=== PATIENT | male | born 1955 | race Hispanic/Latino ===

== ENCOUNTER 2018-06-14 09:16 | Inpatient (IN) | payer MEDICARE ==
[2018-06-14 09:54] LABS: BASO # 0.03 {null, K/mm3} (0.0-2.0); BASO % 0.3 % (0.0-3.0); EOS # 0.3 (0.0-0.7); EOS % 3.5 % (1.5-5.0); HEMOGLOBIN 14.7 g/dL (14.0-18.0); LYMPH # 1.6 (1.2-3.4); LYMPH % 18.5 % (22.0-35.0); MEAN CELL VOLUME 86.1 fl (80.0-105.0); MEAN CORPUSCULAR HEMOGLOBIN 29.7 pg (25.0-35.0); MEAN CORPUSCULAR HGB CONC 34.5 g/dl (31.0-37.0); MEAN PLATELET VOLUME 10.2 fl (7.0-11.0); MONO # 0.8 (0.1-0.6); MONO % 8.7 % (1.0-6.0); RBC 4.95 {null, 10^6/uL} (3.5-6.1); RED CELL DISTRIBUTION WIDTH 12.6 % (11.5-14.5); WHITE BLOOD COUNT 8.8 {null, 10^3/uL} (4.5-11.0)
--- NOTE | 2018-06-14 09:55 | ED PDOC ---
Arrival/HPI - General Chief Complaint: Weakness/Neurological Deficit Time Seen by Provider: 06/14/18 09:26 Historian: Patient - History of Present Illness Narrative History of Present Illness (Text): 06/14/18 09:50 A 62 year old male, whose past medical history includes diabetes type 2, UT, pacemaker, and hypertension, presents to the emergency department complaining of left upper/lower extremity weakness starting yesterday. Patient reports yesterday he was watching TV and upon getting up from his chair, he felt sudden weakness to his left lower extremity and fell to the floor. Patient assumed it was due to low blood sugar, so he checked it and it measured to 260. Patient remained unconcerned at the time regarding his weakness. Today, patient continues to experience in the lower left extremity, as well as the left upper extremity. Patient was unable to ambulate and decided to come to the ER to be evaluated for symptoms. Patient denies any head trauma, LOC, or any other complaints at this time. Denies any history of alcohol consumption, and is no longer a smoker. Associated Symptoms (Text): 06/14/18 10:20 Patient reports that he was sitting in a chair yesterday morning. He went to get out of the chair at 12 noon and noticed left lower extremity weakness causing him to fall on the ground. He thought it was related to his blood sugar which was high. He continued to have the left lower extremity weakness all day yesterday and continued with it today. He also had some difficulty walking and some left upper extremity weakness and came to the emergency department this morning for evaluation. The symptoms were first noticed approximately 22 hours prior to arrival. It is unclear when the patient was last seen normal prior to the symptoms beginning 22 hours ago. Patient is not a TPA candidate as his symptoms began 22 hours ago. Past Medical History - Provider Review Nursing Documentation Reviewed: Yes - Tetanus Immunization Tetanus Immunization: Unknown - Cardiac Hx Cardiac Arrhythmia: Yes Hx Congestive Heart Failure: Yes Hx UT: Yes Hx Hypertension: Yes Hx Internal Defibrillator: Yes Hx Pacemaker: Yes - Endocrine/Metabolic Hx Diabetes Mellitus Type 2: Yes - Psychiatric Hx Depression: No Hx Emotional Abuse: No Hx Physical Abuse: No Hx Substance Use: No - Suicidal Assessment Feels Threatened In Home Enviroment: No Family/Social History - Physician Review Nursing Documentation Reviewed: Yes Family/Social History: Unknown Family HX Smoking Status: Former Smoker Hx Alcohol Use: No Hx Substance Use: No Hx Substance Use Treatment: No Allergies/Home Meds Allergies/Adverse Reactions: Allergies No Known Allergies Allergy (Verified 06/14/18 09:19) Home Medications: Home Meds Medication Instructions Recorded Confirmed Aspirin [Ecotrin] 325 mg PO DAILY 08/27/13 08/27/13 Ca/Folic Acid/Vit B1/Vit B12 [B 1 tab PO DAILY 08/27/13 08/27/13 Complex] Carvedilol 25 mg PO BID 08/27/13 08/27/13 Fish Oil 900 mg PO DAILY 08/27/13 08/27/13 Furosemide [Lasix] 40 mg PO DAILY 08/27/13 08/27/13 Glimepiride 4 mg PO BID 08/27/13 08/27/13 Insulin Detemir [Levemir] 15 units SC HS 08/27/13 08/27/13 Lisinopril 20 mg PO DAILY 08/27/13 08/27/13 Metformin HCl [Metformin] 1,000 mg PO BID 08/27/13 08/27/13 Potassium Chloride [Klor-Con 10] 10 meq PO DAILY 08/27/13 08/27/13 Pravastatin Sodium [Pravastatin] 40 mg PO DAILY 08/27/13 08/27/13 Review of Systems - Physician Review All systems were reviewed & negative as marked: Yes - Review of Systems Constitutional: absent: Fatigue, Other (no injuries) Respiratory: Normal Cardiovascular: Normal Gastrointestinal: Normal Skin: Normal Neurological: Focal Weakness, Gait Changes, Facial Droop, Other (left upper and lower extremity weakness). absent: Headache, Dizziness, Speech Changes, Disequilibrium, Seizure Physical Exam Vital Signs Reviewed: Yes Vital Signs Temp Pulse Resp BP Pulse Ox 06/14/18 09:16 98.1 F 87 18 115/63 98 Temperature: Afebrile Blood Pressure: Normal Pulse: Regular Respiratory Rate: Normal Appearance: Positive for: Well-Appearing, Non-Toxic, Comfortable Pain Distress: None Mental Status: Positive for: Alert and Oriented X 3 Finger Stick Blood Glucose: 315 - Systems Exam Head: Present: Atraumatic, Normocephalic Pupils: Present: PERRL Extroacular Muscles: Present: EOMI Conjunctiva: Present: Normal Ears: Present: NORMAL TM, Normal Canal. No: Erythema, TM Bulging Mouth: Present: Moist Mucous Membranes Pharnyx: No: ERYTHEMA, EXUDATE, TONSILS ENLARGED Neck: Present: Normal Range of Motion Respiratory/Chest: Present: Clear to Auscultation, Good Air Exchange. No: Respiratory Distress, Accessory Muscle Use Cardiovascular: Present: Regular Rate and Rhythm, Normal S1, S2. No: Murmurs Abdomen: No: Tenderness, Distention, Peritoneal Signs Back: Present: Normal Inspection Upper Extremity: Present: Normal Inspection, Other (mild left upper extremity weakness). No: Cyanosis, Edema Lower Extremity: Present: Normal Inspection, Other (moderate left lower extremity weakness). No: Edema Neurological: Present: GCS=15, CN II-XII Intact, Speech Normal, Normal Cerebellar Funct, Other (left-side facial droop). No: Motor Func Grossly Intact, Gait Normal Skin: Present: Warm, Dry, Normal Color. No: Rashes Psychiatric: Present: Alert, Oriented x 3, Normal Insight, Normal Concentration Medical Decision Making ED Course and Treatment: 06/14/18 09:55 Impression: 62 year old male with left upper/lower extremity, and left-side facial droop. Plan: -- EKG -- Head CT -- Chest X-ray -- Labs -- Reassess and disposition Progress Notes: 06/14/2018 10:[address] IMPRESSION: No acute intracranial pathology identified. Please note that MRI with diffusion imaging is more sensitive in the detection of acute ischemic event. Dictator: Mayra Zaldivar MD 06/14/18 10:23 EKG shows normal sinus rhythm rate approximately 90 with a primary AV block and a nonspecific intraventricular conduction delay and Q waves inferiorly with no acute ST or T wave changes. 06/14/18 10:[address] Cage, who accepts to have patient admitted under Dr. Denton's service. - RAD Interpretation Radiology Orders: 06/14/18 09:38 HEAD W/O CONTRAST [CT] Stat 06/14/18 09:39 CHEST PORTABLE [RAD] Stat NIHSS Scale ([place]) Time Performed: 09:40 - How Severe is the Stoke Baseline Level of Consciousness: 0=Alert LOC to Questions: 0=Both comments correct LOC to commands: 0=Obeys both correctly Best Gaze: 0=Normal Visual: 0=No visual loss Facial: 1=Minor asymmetry Motor Arm - Left: 0=No drift Motor Arm - Right: 0=No drift Motor Leg - Left: 3=No effort against gravity (falls immediately) Motor Leg - Right: 0=No drift Limb Ataxia: 0=Absent Sensory: 0=Normal Best Language: 0=No aphasia Dysarthia: 0=Normal articulation Extinction & Inattention (Neglect): 0=Normal, no object Score: 4 Risk Level: Minor Stroke Risk - Scribe Statement The provider has reviewed the documentation as recorded by the Arthur Flores Provider Scribe Attestation: All medical record entries made by the Arthur were at my direction and personally dictated by me. I have reviewed the chart and agree that the record accurately reflects my personal performance of the history, physical exam, medical decision making, and the department course for this patient. I have also personally directed, reviewed, and agree with the discharge instructions and disposition. Disposition/Present on Arrival - Present on Arrival Any Indicators Present on Arrival: No History of DVT/PE: No History of Uncontrolled Diabetes: No Urinary Catheter: No History of Decub. Ulcer: No History Surgical Site Infection Following: None - Disposition Have Diagnosis and Disposition been Completed?: Yes Diagnosis: Cerebrovascular accident, Hyperglycemia due to type 1 diabetes mellitus Disposition: HOSPITALIZED Disposition Time: 10:40 Patient Plan: Admission, Telemetry Patient Problems: Current Active Problems Problem Status Onset Cerebrovascular accident Acute Hyperglycemia due to type 1 diabetes mellitus Acute Condition: FAIR
[2018-06-14 09:59] LABS: INR 1.07; PARTIAL THROMBOPLASTIN TIME 27.2 Seconds (26.9-38.3); PROTHROMBIN TIME 12.1 SECONDS (9.4-12.5)
[2018-06-14 10:12] LABS: TROPONIN I < 0.01 ng/mL
[2018-06-14 10:14] LABS: ALB/GLOB RATIO 1.3 (1.1-1.8); ALBUMIN 4.5 g/dL (3.0-4.8); ALT/SGPT 17 U/L (7-56); AST/SGOT 22 U/L (17-59); BLOOD UREA NITROGEN 19 mg/dL (7-21); CALCIUM 9.7 mg/dL (8.4-10.5); GFR NON-AFRICAN AMERICAN > 60
--- NOTE | 2018-06-14 10:16 | CT ---
Date of service: 06/14/2018 PROCEDURE: CT HEAD WITHOUT CONTRAST. HISTORY: cva COMPARISON: Noncontrast head CT performed 04/02/12 TECHNIQUE: Axial computed tomography images were obtained through the head/brain without intravenous contrast. Radiation dose: Total exam DLP = 899.03 mGy-cm. This CT exam was performed using one or more of the following dose reduction techniques: Automated exposure control, adjustment of the mA and/or kV according to patient size, and/or use of iterative reconstruction technique. FINDINGS: HEMORRHAGE: No intracranial hemorrhage. BRAIN: Diffuse atrophy with prominence of the ventricles and sulci noted. No mass effect or edema. Intracranial atherosclerosis. Giraldo-white matter differentiation appears intact. Please note that MRI with diffusion imaging is more sensitive in the detection of acute ischemic event. VENTRICLES: No hydrocephalus. CALVARIUM: Unremarkable. PARANASAL SINUSES: Unremarkable as visualized. No significant inflammatory changes. MASTOID AIR CELLS: Unremarkable as visualized. No inflammatory changes. OTHER FINDINGS: None. IMPRESSION: No acute intracranial pathology identified. Please note that MRI with diffusion imaging is more sensitive in the detection of acute ischemic event.
[2018-06-14] MEDS ORDERED: Insulin Regular 1 UNITS/0.01 ML ML SC STA ×2 (10:17→11:07)
--- NOTE | 2018-06-14 10:36 | RAD ---
HISTORY: cva COMPARISON: Chest x-rays performed 12/07/14, 06/11/12 TECHNIQUE: Chest, one view. FINDINGS: LUNGS: No focal consolidation. Please note that chest x-ray has limited sensitivity for the detection of pulmonary masses. PLEURA: No significant pleural effusion identified. No definite pneumothorax . CARDIOVASCULAR: Median sternotomy wires with evidence of CABG. Marked cardiomegaly. Single lead left-sided AICD. OSSEOUS STRUCTURES: No acute osseous abnormality identified. VISUALIZED UPPER ABDOMEN: Unremarkable. OTHER FINDINGS: None. IMPRESSION: Marked cardiomegaly. Single lead left-sided AICD. Median sternotomy wires with evidence CABG.
[2018-06-14 11:49] VITALS: BMI 30.1
--- NOTE | 2018-06-14 14:36 | CARD ---
APPROVED REPORT Date of service: 06/14/2018 EKG Measurement Heart [id number] <Conclusion> Sinus rhythm with 1st degree AV block Inferior infarct, age undetermined Abnormal ECG
[2018-06-14] MEDS: Insulin Lispro (humaLOG) MEDIUM Coverage SC SCH ×2 (17:00→21:46)
--- NOTE | 2018-06-14 17:04 | RAD ---
Date of service: 06/14/2018 PROCEDURE: Radiographs of the Lumbar Spine. HISTORY: fall left leg weak COMPARISON: No prior. FINDINGS: BONES: Alignment appears satisfactory. No listhesis. No acute displaced fracture identified. Degenerative changes including osteophyte formation. DISC SPACES: Unremarkable. OTHER FINDINGS: 9 mm right upper quadrant calcification, either gallstones or renal calculus. A 2nd calcification is noted on lateral view. Dense atherosclerotic calcifications of the aorta. IMPRESSION: No acute displaced fracture or subluxation identified. Additional findings as above.
--- NOTE | 2018-06-14 17:18 | RAD ---
Date of service: 06/14/2018 HISTORY: fall left leg weakness COMPARISON: chest x-ray performed 06/14/18 FINDINGS: BONES: Alignment maintained. No acute displaced fracture. Degenerative changes including small anterior osteophyte formation. DISC SPACES: Mild intervertebral disc space narrowing. SOFT TISSUES: Unremarkable. OTHER FINDINGS: Median sternotomy wires. Partially imaged AICD lead. Right upper quadrant surgical clips. IMPRESSION: Mild degenerative changes. No acute displaced fracture or subluxation identified.
[2018-06-14 17:32] LABS: HDL CHOLESTEROL 25 mg/dL (29-60)
[2018-06-14] MEDS: Aspirin 325 mg EC Tablets PO SCH ×2 (17:41→17:46)
[2018-06-14] MEDS: Potassium Chloride 10 mEq ER Tab PO SCH (17:41)
[2018-06-14 17:42] LABS: LDL CHOLESTEROL 65 mg/dL (0-129)
--- NOTE | 2018-06-14 21:23 | HP ---
DATE OF EXAM: 06/14/2018 HISTORY OF PRESENT ILLNESS: The patient is a 62-year-old who when he got out of bed yesterday, he lost balance and he fell and since then he was having left leg weakness, he thought just because of the fall and then he noticed that his left hand is not as strong as his right hand that he noticed today, so he thought he had a stroke, so he came to emergency room for further evaluation. Denies any headache. Denies loosing any consciousness. Denies any seizure-like activity. Never had stroke before. Denies any fevers or chills. No nausea or vomiting. No diarrhea. PAST MEDICAL HISTORY: Significant for: 1. Hypertension. 2. History of cardiomyopathy. 3. Status post defibrillator placement 12 years ago. 4. Noninsulin-dependent diabetes. 5. History of COPD. 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 He used to be heavy smoker for 15 to 20 years, but quit 20 years ago. ALLERGIES: HE IS NOT ALLERGIC TO ANY MEDICATION. MEDICATIONS AT HOME: He is on metformin 1000 twice a day, lisinopril 20 mg daily, glimepiride 4 mg twice a day, Lasix 40 mg daily, carvedilol 25 twice a day, aspirin daily, pravastatin 40 mg daily, Levemir 15 units at bedtime, and multivitamin. REVIEW OF SYSTEMS: Significant for left lower extremity and left upper extremity weakness. PHYSICAL EXAMINATION: NEUROLOGIC: He is awake, alert, oriented, and able to communicate. No slurred speech noted. He has slight right facial droop and left upper extremity power seems to be equal, but however, his motor strength is 4/5 in the left lower extremity. LABORATORY DATA: WBC 8.8, hemoglobin 14.7, hematocrit 24.6, and platelet 172. PT 12.1 and INR 1.07 and PTT 27.2. Chemistry; sodium 134, potassium 4.6, chloride 99, CO2 of 25, BUN 19, creatinine 0.8, and blood sugar of 263. Magnesium 1.3. X-ray of chest is unremarkable except he has single lead defibrillator, mild cardiomegaly. CT scan of the head, no acute intracranial finding noted. ASSESSMENT: 1. Status post fall. 2. Left lower extremity weakness. 3. Rule out cerebrovascular accident. 4. Cardiomyopathy with poor ejection fraction of 15%. 5. Status post defibrillator placement. 6. Noninsulin-dependent diabetes. 7. Hyperlipidemia. PLAN: I will order for thoracic and lumbar x-ray, rule out vertebral fracture. I will order for lumbosacral x-ray. We will start him on statins. Continue him on aspirin. Neuro consult has been requested. I will request for physical therapy evaluation. The patient cannot have MRI because of the pacemaker, might have to repeat the CT scan of the brain in a.m. Greg Cage MD
[2018-06-14] MEDS: Lidocaine 5% Patch TD SCH (23:55)
[2018-06-15] MEDS ORDERED: Magnesium Oxide 400 mg Tab UD PO STA (06:06)
--- NOTE | 2018-06-15 06:13 | CP.PCM.PN ---
<Shell Saleh - Last Filed: 06/15/18 15:13> Subjective - Date & Time of Evaluation Date of Evaluation: 06/15/18 Time of Evaluation: 06:12 - Subjective Subjective: Shell Saleh, PGY2, Medicine Progress Note for Dr Navarro: Patient seen and examined at bedside. No acute events overnight. Patient reports ongoing left sided weakness, with mild improvement since admission. Reports no dysphagia and is tolerating his food well. Denies new focal weakness, sensation loss, fevers, chills, nausea, vomiting, abdominal pain, leg swelling. Patient reports that he is still limping while walking to the bathroom. Objective - Vital Signs/Intake and Output Vital Signs (last 24 hours): Temp Pulse Resp BP Pulse Ox 97.8 F 69 20 107/69 97 06/15/18 00:01 06/15/18 02:00 06/15/18 00:01 06/15/18 00:01 06/15/18 00:01 Intake and Output: 06/14/18 06/15/18 18:59 06:59 Intake Total 540 Balance 540 - Medications Medications: Current Medications Aspirin (Ecotrin) 325 mg PO DAILY [facility] Last Admin: 06/14/18 17:46 Dose: Not Given Atorvastatin Calcium (Lipitor) 20 mg PO DIN [facility] Last Admin: 06/14/18 17:41 Dose: 20 mg Carvedilol (Coreg) 25 mg PO BID [facility] Last Admin: 06/14/18 17:41 Dose: 25 mg Furosemide (Lasix) 40 mg PO DAILY [facility] Last Admin: 06/14/18 17:41 Dose: 40 mg Glimepiride (Amaryl) 4 mg PO BID [facility] Last Admin: 06/14/18 17:41 Dose: 4 mg Insulin Human Lispro (Humalog Med) 0 units SC [facility]; Protocol Last Admin: 06/14/18 21:46 Dose: Not Given Lidocaine (Lidoderm) 1 ea TD DAILY [facility] Last Admin: 06/14/18 23:55 Dose: 1 ea Lisinopril (Zestril) 20 mg PO DAILY [facility] Last Admin: 06/14/18 21:47 Dose: Not Given Metformin HCl (Glucophage) 1,000 mg PO BID [facility] Last Admin: 06/14/18 17:41 Dose: 1,000 mg Potassium Chloride (Klor-Con 10) 10 meq PO DAILY [facility] Last Admin: 06/14/18 17:41 Dose: 10 meq - Labs Labs: 06/14/18 09:20 06/14/18 09:20 PT 12.1 SECONDS (9.4-12.5) 06/14/18 09:20 INR 1.07 06/14/18 09:20 APTT 27.2 Seconds (26.9-38.3) 06/14/18 09:20 - Constitutional Appears: Non-toxic, No Acute Distress - Head Exam Head Exam: ATRAUMATIC, NORMOCEPHALIC - Eye Exam Eye Exam: EOMI, PERRL. absent: Conjunctival injection, Nystagmus, Scleral icterus Pupil Exam: NORMAL ACCOMODATION, PERRL. absent: Irregular, Miosis, Mydriatic, Unequal - ENT Exam ENT Exam: Mucous Membranes Moist - Neck Exam Neck Exam: Full ROM - Respiratory Exam Respiratory Exam: Clear to Ausculation Bilateral, NORMAL BREATHING PATTERN. absent: Prolonged Expiratory Phase, Rales, Rhonchi, Respiratory Distress, Stridor - Cardiovascular Exam Cardiovascular Exam: RRR, +S1, +S2. absent: Murmur - GI/Abdominal Exam GI & Abdominal Exam: Soft, Normal Bowel Sounds. absent: Rigid, Tenderness, Hernia, Mass, Organomegaly, Rebound - Extremities Exam Extremities Exam: Normal Inspection. absent: Calf Tenderness, Pedal Edema - Back Exam Back Exam: NORMAL INSPECTION - Neurological Exam Neurological Exam: Alert, Awake, Oriented x3 Neuro motor strength exam: Left Upper Extremity: 5, Right Upper Extremity: 5, Left Lower Extremity: 5, Right Lower Extremity: 5 Additional comments: Sensation intact throughout. will defer assessment of gait to physical therapy - Psychiatric Exam Psychiatric exam: Normal Affect, Normal Mood - Skin Skin Exam: Dry, Normal Color, Warm Assessment and Plan - Assessment and Plan (Free Text) Assessment: 1. Acute CVA in right periventricular area 2. s/p fall 3. Cardiomyopathy with EF 15% 4. S/p defibrillator placement 12 years ago, recently replaced in 07/2017 5. Type 2, non-insulin dependent Diabetes 6. Hyperlipidemia 7. CAD s/p CABG Will continue with ASA and lipitor 40 mg daily. Lipid panel reviewed, LDL 65, cholesterol 149. 10 year ASCVD score 16.5%. Continue with lisinopril, ASA, coreg, lasix for his cardiomyopathy, CAD. Continue with ISS and glimeperide for DM. Continue with Lidoderm patch daily for pain. Continue with protonix 40 mg daily. Case reviewed and discussed with Dr Navarro. <Kirk Navarro S - Last Filed: 06/15/18 17:32> Objective - Vital Signs/Intake and Output Vital Signs (last 24 hours): Temp Pulse Resp BP Pulse Ox 97.8 F 75 18 144/76 96 06/15/18 12:00 06/15/18 12:00 06/15/18 12:00 06/15/18 12:00 06/15/18 06:00 Intake and Output: 06/15/18 06/15/18 06:59 18:59 Intake Total 240 Output Total 400 Balance -160 - Medications Medications: Current Medications Aspirin (Ecotrin) 325 mg PO DAILY [facility] Last Admin: 06/15/18 10:38 Dose: 325 mg Atorvastatin Calcium (Lipitor) 40 mg PO DIN [facility] Carvedilol (Coreg) 25 mg PO BID [facility] Last Admin: 06/15/18 10:38 Dose: 25 mg Furosemide (Lasix) 40 mg PO DAILY [facility] Last Admin: 06/15/18 10:39 Dose: 40 mg Glimepiride (Amaryl) 4 mg PO BID [facility] Last Admin: 06/15/18 10:38 Dose: 4 mg Insulin Human Lispro (Humalog Med) [address] [facility]; Protocol Last Admin: 06/15/18 17:09 Dose: 3 units Lidocaine (Lidoderm) 1 ea TD DAILY [facility] Last Admin: 06/15/18 10:39 Dose: 1 ea Lisinopril (Zestril) 20 mg PO DAILY [facility] Last Admin: 06/15/18 10:39 Dose: 20 mg Magnesium Oxide (Mag-Ox) 400 mg PO BID [facility] Pantoprazole Sodium (Protonix Ec Tab) 40 mg PO 0600 [facility] Potassium Chloride (Klor-Con 10) 10 meq PO DAILY [facility] Last Admin: 06/15/18 10:39 Dose: 10 meq - Labs Labs: 06/14/18 09:20 06/15/18 10:30 PT 12.1 SECONDS (9.4-12.5) 06/14/18 09:20 INR 1.07 06/14/18 09:20 APTT 27.2 Seconds (26.9-38.3) 06/14/18 09:20 Assessment and Plan - Assessment and Plan (Free Text) Assessment: Pt seen and examined by me. I have reviewed the note of the medical imaging specialist and I agree with it. I have discussed the assessment and plan with the resident. I have reviewed the medications and the last labs.
[2018-06-15] MEDS: Insulin Lispro (humaLOG) MEDIUM Coverage SC SCH ×4 (08:15→21:05)
[2018-06-15] MEDS ORDERED: Magnesium Oxide 400 mg Tab UD PO SCH (10:00)
--- NOTE | 2018-06-15 10:32 | CT ---
Date of service: 06/15/2018 PROCEDURE: CT HEAD WITHOUT CONTRAST. HISTORY: r/o CVA COMPARISON: 06/14/2018 and 04/02/2012 CT TECHNIQUE: Axial computed tomography images were obtained through the head/brain without intravenous contrast. Radiation dose: Total exam DLP = 922.13 mGy-cm. This CT exam was performed using one or more of the following dose reduction techniques: Automated exposure control, adjustment of the mA and/or kV according to patient size, and/or use of iterative reconstruction technique. FINDINGS: HEMORRHAGE: No intracranial hemorrhage. BRAIN: No mass effect or edema. Chronic microvascular changes are seen in the periventricular white matter. There is a 10 mm round infarct in the right periventricular white matter that appears more well-defined than on yesterday's study. This is suspicious for an acute infarct. VENTRICLES: Unremarkable. No hydrocephalus. CALVARIUM: Unremarkable. PARANASAL SINUSES: Unremarkable as visualized. No significant inflammatory changes. MASTOID AIR CELLS: Unremarkable as visualized. No inflammatory changes. OTHER FINDINGS: None. IMPRESSION: Chronic microvascular changes are seen in the periventricular white matter. There is a 10 mm round infarct in the right periventricular white matter that appears more well-defined than on yesterday's study. This is suspicious for an acute infarct.
[2018-06-15] MEDS: Aspirin 325 mg EC Tablets PO SCH (10:38)
[2018-06-15] MEDS: Lidocaine 5% Patch TD SCH (10:39)
[2018-06-15] MEDS: Potassium Chloride 10 mEq ER Tab PO SCH (10:39)
[2018-06-15 10:56] LABS: BLOOD UREA NITROGEN 19 mg/dL (7-21); GFR NON-AFRICAN AMERICAN > 60
[2018-06-15 11:14] LABS: FREE T4 1.9 ng/dL (0.78-2.19)
--- NOTE | 2018-06-15 13:23 | CP.PCM.PCO ---
Physician Communication Note - Physician Communication Note Physician Communication Note: Neurology recommends acute rehab
--- NOTE | 2018-06-15 13:40 | CP.PCM.PCO ---
Physician Communication Note - Physician Communication Note Physician Communication Note: pending nephrostomy tubes, continue with current treatment
[2018-06-15] MEDS: Magnesium Oxide 400 mg Tab UD PO SCH (18:42)
--- NOTE | 2018-06-15 19:31 | PN ---
DATE: 06/15/2018 SUBJECTIVE: Patient was seen and examined. I do agree with the note of the medical pathology teacher. I did go over the plan of care and I agree with the note. The patient was not able to get an MRI so a CT was done. There is a 10 mm infarct in the right periventricular white matter that appears to be well defined. This is most likely secondary to an acute CVA. The patient did have left-sided leg weakness. The patient has a cardiomyopathy with EF of 15%. Patient is on aspirin and lisinopril for the cardiomyopathy. He has not been walking well. Physical therapy will need to see the patient. If the patient agrees, he may need to go to an acute facility. He is 62 and was fairly independent prior to this. He is on his Amaryl for his diabetes. He is receiving Lasix daily for his cardiomyopathy. He is on Lipitor. The Lipitor was increased to 40 mg for moderate treatment. He is on a diabetic diet. He will be seen by Neurology. Kirk Navarro MD
--- NOTE | 2018-06-15 20:15 | CON ---
DATE: 06/15/2018 HISTORY OF PRESENT ILLNESS: This is a 62-year-old white male with a past medical history of hypertension, cardiomyopathy, status post defibrillator, diabetes, and history of COPD came to the hospital because he stood up from the compute and felt weak on the left side and fell. Because he fell he noticed that his left hand is also not that strong than his right and so brought him to the emergency room. CAT scan of the head was done. Repeat CAT scan showed right periventricular infarct. PAST MEDICAL HISTORY: As above. 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 ALLERGIES: NO KNOWN DRUG ALLERGY. PHYSICAL EXAMINATION: HEENT: Normocephalic and atraumatic. NECK: Supple. NEUROLOGIC: Alert, awake, oriented x3. No aphasia. Cranial nerves II through XII are tested. Pupils reactive. EOMI intact. Visual field full. No facial asymmetry. Tongue is midline. Motor examination; all the extremities noted except weakness of the left upper and left lower extremity is about 4/5 and deep tendon reflexes 1+. Both plantars are downgoing. Left plantar upgoing. Sensory appears intact. Cerebellar gait, deferred. IMPRESSION: Right hemispheric stroke with left-sided weakness. A repeat CAT scan showed infarct of the right periventricular area. Physical therapy and aspirin. Continue present management. We will follow up. Davy Ricci MD
[2018-06-15] MEDS ORDERED: Lidocaine 5% Patch TD STA (21:50)
--- NOTE | 2018-06-15 21:53 | CP.PCM.PN ---
<Jose Carlos Alaniz - Last Filed: 06/15/18 21:53> Subjective - Date & Time of Evaluation Date of Evaluation: 06/15/18 Time of Evaluation: 21:51 - Subjective Subjective: Patient requested lidoderm patch for his lower back pain. Ordered lidoderm patch x1. Jose Carlos Alaniz PGY1 Objective - Vital Signs/Intake and Output Vital Signs (last 24 hours): Temp Pulse Resp BP Pulse Ox 97.9 F 90 19 117/71 96 06/15/18 18:00 06/15/18 18:42 06/15/18 18:00 06/15/18 18:42 06/15/18 06:00 Intake and Output: 06/15/18 06/16/18 18:59 06:59 Intake Total 1192 Balance 1192 - Medications Medications: Current Medications Aspirin (Ecotrin) 325 mg PO DAILY ON LICENSE OF [facility] Last Admin: 06/15/18 10:38 Dose: 325 mg Atorvastatin Calcium (Lipitor) 40 mg PO DIN ON LICENSE OF [facility] Last Admin: 06/15/18 18:42 Dose: 40 mg Carvedilol (Coreg) 25 mg PO BID ON LICENSE OF [facility] Last Admin: 06/15/18 18:42 Dose: 25 mg Furosemide (Lasix) 40 mg PO DAILY ON LICENSE OF [facility] Last Admin: 06/15/18 10:39 Dose: 40 mg Glimepiride (Amaryl) 4 mg PO BID ON LICENSE OF [facility] Last Admin: 06/15/18 18:42 Dose: 4 mg Insulin Human Lispro (Humalog Med) 0 units SC [facility] ON LICENSE OF [facility]; Protocol Last Admin: 06/15/18 21:05 Dose: Not Given Lidocaine (Lidoderm) 1 ea TD DAILY ON LICENSE OF [facility] Last Admin: 06/15/18 10:39 Dose: 1 ea Lisinopril (Zestril) 20 mg PO DAILY ON LICENSE OF [facility] Last Admin: 06/15/18 10:39 Dose: 20 mg Magnesium Oxide (Mag-Ox) 400 mg PO BID ON LICENSE OF [facility] Last Admin: 06/15/18 18:42 Dose: 400 mg Pantoprazole Sodium (Protonix Ec Tab) 40 mg PO 0600 ON LICENSE OF [facility] Potassium Chloride (Klor-Con 10) 10 meq PO DAILY ON LICENSE OF [facility] Last Admin: 06/15/18 10:39 Dose: 10 meq - Labs Labs: 06/14/18 09:20 06/15/18 10:30 PT 12.1 SECONDS (9.4-12.5) 06/14/18 09:20 INR 1.07 06/14/18 09:20 APTT 27.2 Seconds (26.9-38.3) 06/14/18 09:20 <Shayy Shah - Last Filed: 06/15/18 22:00> Objective - Vital Signs/Intake and Output Vital Signs (last 24 hours): Temp Pulse Resp BP Pulse Ox 97.9 F 90 19 117/71 96 06/15/18 18:00 06/15/18 18:42 06/15/18 18:00 06/15/18 18:42 06/15/18 06:00 Intake and Output: 06/15/18 06/16/18 18:59 06:59 Intake Total 1192 Balance 1192 - Medications Medications: Current Medications Aspirin (Ecotrin) 325 mg PO DAILY ON LICENSE OF [facility] Last Admin: 06/15/18 10:38 Dose: 325 mg Atorvastatin Calcium (Lipitor) 40 mg PO DIN ON LICENSE OF [facility] Last Admin: 06/15/18 18:42 Dose: 40 mg Carvedilol (Coreg) 25 mg PO BID ON LICENSE OF [facility] Last Admin: 06/15/18 18:42 Dose: 25 mg Furosemide (Lasix) 40 mg PO DAILY ON LICENSE OF [facility] Last Admin: 06/15/18 10:39 Dose: 40 mg Glimepiride (Amaryl) 4 mg PO BID ON LICENSE OF [facility] Last Admin: 06/15/18 18:42 Dose: 4 mg Insulin Human Lispro (Humalog Med) 0 units SC [facility] ON LICENSE OF [facility]; Protocol Last Admin: 06/15/18 21:05 Dose: Not Given Lidocaine (Lidoderm) 1 ea TD DAILY ON LICENSE OF [facility] Last Admin: 06/15/18 10:39 Dose: 1 ea Lisinopril (Zestril) 20 mg PO DAILY ON LICENSE OF [facility] Last Admin: 06/15/18 10:39 Dose: 20 mg Magnesium Oxide (Mag-Ox) 400 mg PO BID ON LICENSE OF [facility] Last Admin: 06/15/18 18:42 Dose: 400 mg Pantoprazole Sodium (Protonix Ec Tab) 40 mg PO 0600 ON LICENSE OF [facility] Potassium Chloride (Klor-Con 10) 10 meq PO DAILY ON LICENSE OF [facility] Last Admin: 06/15/18 10:39 Dose: 10 meq - Labs Labs: 06/14/18 09:20 06/15/18 10:30 PT 12.1 SECONDS (9.4-12.5) 06/14/18 09:20 INR 1.07 06/14/18 09:20 APTT 27.2 Seconds (26.9-38.3) 06/14/18 09:20 Attending/Attestation - Attestation I have personally seen and examined this patient.: No I have fully participated in the care of the patient.: No I have reviewed all pertinent clinical information, including history, physical exam and plan: No
[2018-06-16 05:38] VITALS: O2SAT 92
[2018-06-16] MEDS ORDERED: Pantoprazole 40 mg EC Tab PO SCH (06:00)
[2018-06-16] MEDS: Potassium Chloride 10 mEq ER Tab PO SCH ×2 (08:39→11:58)
[2018-06-16] MEDS: Magnesium Oxide 400 mg Tab UD PO SCH ×2 (08:41→11:59)
[2018-06-16] MEDS: Aspirin 325 mg EC Tablets PO SCH ×2 (08:41→11:58)
[2018-06-16] MEDS: Lidocaine 5% Patch TD SCH ×2 (08:42→11:59)
[2018-06-16] MEDS: Insulin Lispro (humaLOG) MEDIUM Coverage SC SCH ×2 (08:42→12:33)
--- NOTE | 2018-06-16 09:45 | CP.PCM.DIS ---
<Shell Saleh - Last Filed: 06/16/18 14:17> Provider - Provider Date of Admission: 06/14/18 10:36 Attending physician: Kirk Navarro MD Consults: 06/14/18 10:39 Consult [Physician Consult] Stat Comment: routine Consulting Provider: John Ricci Consulting Physician: John Ricci Reason for Consult: CVA Time Spent in preparation of Discharge (in minutes): 60 Diagnosis - Discharge Diagnosis (1) Cardiomyopathy Status: Chronic (2) Cerebrovascular accident Status: Acute Hospital Course - Lab Results Lab Results: Most Recent Lab Values WBC 8.8 10^3/uL (4.5-11.0) 06/14/18 09:20 RBC 4.95 10^6/uL (3.5-6.1) 06/14/18 09:20 Hgb 14.7 g/dL (14.0-18.0) 06/14/18 09:20 Hct 42.6 % (42.0-52.0) 06/14/18 09:20 MCV 86.1 fl (80.0-105.0) 06/14/18 09:20 MCH 29.7 pg (25.0-35.0) 06/14/18 09:20 MCHC 34.5 g/dl (31.0-37.0) 06/14/18 09:20 RDW 12.6 % (11.5-14.5) 06/14/18 09:20 Plt Count 172 10^3/uL (120.0-450.0) 06/14/18 09:20 MPV 10.2 fl (7.0-11.0) 06/14/18 09:20 Neut % (Auto) 69.0 % (50.0-68.0) H 06/14/18 09:20 Lymph % (Auto) 18.5 % (22.0-35.0) L 06/14/18 09:20 Zavala % (Auto) 8.7 % (1.0-6.0) H 06/14/18 09:20 Eos % (Auto) 3.5 % (1.5-5.0) 06/14/18 09:20 Baso % (Auto) 0.3 % (0.0-3.0) 06/14/18 09:20 Lymph # (Auto) 1.6 (1.2-3.4) 06/14/18 09:20 Zavala # (Auto) 0.8 (0.1-0.6) H 06/14/18 09:20 Eos # (Auto) 0.3 (0.0-0.7) 06/14/18 09:20 Baso # (Auto) 0.03 K/mm3 (0.0-2.0) 06/14/18 09:20 Absolute Neuts (auto) 6.03 (1.4-6.5) 06/14/18 09:20 PT 12.1 SECONDS (9.4-12.5) 06/14/18 09:20 INR 1.07 06/14/18 09:20 APTT 27.2 Seconds (26.9-38.3) 06/14/18 09:20 Sodium 138 mmol/L (132-148) 06/15/18 10:30 Potassium 4.6 mmol/L (3.6-5.0) 06/15/18 10:30 Chloride 103 mmol/L (98-107) 06/15/18 10:30 Carbon Dioxide 25 mmol/L (21-33) 06/15/18 10:30 Anion Gap 15 (10-20) 06/15/18 10:30 BUN 19 mg/dL (7-21) 06/15/18 10:30 Creatinine 0.7 mg/dl (0.8-1.5) L 06/15/18 10:30 Est GFR ( Amer) > 60 06/15/18 10:30 Est GFR (Non-Af Amer) > 60 06/15/18 10:30 POC Glucose (mg/dL) 176 mg/dL (65-110) H 06/16/18 07:35 Random Glucose 174 mg/dL (70-110) H 06/15/18 10:30 Hemoglobin A1c 10.4 % (4.2-6.5) H 06/15/18 07:00 Calcium 10.0 mg/dL (8.4-10.5) 06/15/18 10:30 Phosphorus 3.1 mg/dL (2.5-4.5) 06/14/18 09:20 Magnesium 1.5 mg/dL (1.7-2.2) L 06/15/18 10:30 Total Bilirubin 1.1 mg/dL (0.2-1.3) 06/14/18 09:20 AST 22 U/L (17-59) 06/14/18 09:20 ALT 17 U/L (7-56) 06/14/18 09:20 Alkaline Phosphatase 117 U/L (38-126) 06/14/18 09:20 Lactate Dehydrogenase 512 U/L (333-699) 06/14/18 09:20 Total Creatine Kinase 77 U/L (35-230) 06/14/18 09:20 Troponin I < 0.01 ng/mL D 06/14/18 09:20 Total Protein 7.9 g/dL (5.8-8.3) 06/14/18 09:20 Albumin 4.5 g/dL (3.0-4.8) 06/14/18 09:20 Globulin 3.4 gm/dL 06/14/18 09:20 Albumin/Globulin Ratio 1.3 (1.1-1.8) 06/14/18 09:20 Triglycerides 149 mg/dL (35-160) 06/14/18 17:21 Cholesterol 116 mg/dL (130-200) L 06/14/18 17:21 LDL Cholesterol Direct 65 mg/dL (0-129) 06/14/18 17:21 HDL Cholesterol 25 mg/dL (29-60) L 06/14/18 17:21 Free T4 1.90 ng/dL (0.78-2.19) 06/15/18 10:30 TSH 3rd Generation 1.78 mIU/mL (0.46-4.68) 06/15/18 10:30 - Hospital Course Hospital Course: This is a 62 year old male, whose past medical history includes diabetes type 2, OK, pacemaker, and hypertension, presents to the emergency department complaining of left upper/lower extremity weakness starting yesterday. Patient reports yesterday he was watching TV and upon getting up from his chair, he felt sudden weakness to his left lower extremity and fell to the floor. Patient assumed it was due to low blood sugar, so he checked it and it measured to 260. Patient remained unconcerned at the time regarding his weakness. Today, patient continues to experience in the lower left extremity, as well as the left upper extremity. Patient was unable to ambulate and decided to come to the ER to be evaluated for symptoms. Patient denies any head trauma, LOC, or any other complaints at this time. Denies any history of alcohol consumption, and is no longer a smoker. Initial head CT negative for acute changes. Patient given ASA, lipitor. Repeat head CT showed acute infarct in right periventricular area. Neurology evaluated patient, recommended aggressive physical therapy for the left sided weakness/deficits. Physical therapy evaluated him, recommended acute rehab. Patient accepted to [facility], patient agrees to the rehab, diet/excercise and medication compliance. Patient will follow up with Dr Harry upon discharge. Case reviewed and discussed with Dr Navarro. Discharge Exam - Additional Findings Additional findings: - Constitutional Appears: Non-toxic, No Acute Distress - Head Exam Head Exam: ATRAUMATIC, NORMOCEPHALIC - Eye Exam Eye Exam: EOMI, PERRL. absent: Conjunctival injection, Nystagmus, Scleral icterus Pupil Exam: NORMAL ACCOMODATION, PERRL. absent: Irregular, Miosis, Mydriatic, Unequal - ENT Exam ENT Exam: Mucous Membranes Moist - Neck Exam Neck Exam: Full ROM - Respiratory Exam Respiratory Exam: Clear to Ausculation Bilateral, NORMAL BREATHING PATTERN. absent: Prolonged Expiratory Phase, Rales, Rhonchi, Respiratory Distress, Stridor - Cardiovascular Exam Cardiovascular Exam: RRR, +S1, +S2. absent: Murmur - GI/Abdominal Exam GI & Abdominal Exam: Soft, Normal Bowel Sounds. absent: Rigid, Tenderness, Hernia, Mass, Organomegaly, Rebound - Extremities Exam Extremities Exam: Normal Inspection. absent: Calf Tenderness, Pedal Edema - Back Exam Back Exam: NORMAL INSPECTION - Neurological Exam Neurological Exam: Alert, Awake, Oriented x3. CN II-XII grossly intact. Neuro motor strength exam: Left Upper Extremity: 5, Right Upper Extremity: 5, Left Lower Extremity: 3-4, Right Lower Extremity: 5 Additional comments: Sensation intact throughout. + abnormal gait, + limping noted in left leg - Psychiatric Exam Psychiatric exam: Normal Affect, Normal Mood - Skin Skin Exam: Dry, Normal Color, Warm Discharge Plan - Follow Up Plan Condition: FAIR Disposition: REHAB FACILITY/REHAB UNIT Instructions: Cardiomyopathy (DC), Left-Side Stroke (DC), Diabetes and Diet Additional Instructions: Follow up with Dr Harry in 3-5 days of discharge. Take medications as directed. Return to the emergency room for any worsening or onset of new symptoms. Referrals: Bruno Harry MD [Family Provider] - <Kirk Navarro - Last Filed: 06/16/18 16:54> Provider - Provider Date of Admission: 06/14/18 10:36 Attending physician: Kirk Navarro MD Consults: 06/14/18 10:39 Consult [Physician Consult] Stat Comment: routine Consulting Provider: John Ricci Consulting Physician: John Ricci Reason for Consult: A Hospital Course - Lab Results Lab Results: Most Recent Lab Values WBC 8.8 10^3/uL (4.5-11.0) 06/14/18 09:20 RBC 4.95 10^6/uL (3.5-6.1) 06/14/18 09:20 Hgb 14.7 g/dL (14.0-18.0) 06/14/18 09:20 Hct 42.6 % (42.0-52.0) 06/14/18 09:20 MCV 86.1 fl (80.0-105.0) 06/14/18 09:20 MCH 29.7 pg (25.0-35.0) 06/14/18 09:20 MCHC 34.5 g/dl (31.0-37.0) 06/14/18 09:20 RDW 12.6 % (11.5-14.5) 06/14/18 09:20 Plt Count 172 10^3/uL (120.0-450.0) 06/14/18 09:20 MPV 10.2 fl (7.0-11.0) 06/14/18 09:20 Neut % (Auto) 69.0 % (50.0-68.0) H 06/14/18 09:20 Lymph % (Auto) 18.5 % (22.0-35.0) L 06/14/18 09:20 Zavala % (Auto) 8.7 % (1.0-6.0) H 06/14/18 09:20 Eos % (Auto) 3.5 % (1.5-5.0) 06/14/18 09:20 Baso % (Auto) 0.3 % (0.0-3.0) 06/14/18 09:20 Lymph # (Auto) 1.6 (1.2-3.4) 06/14/18 09:20 Zavala # (Auto) 0.8 (0.1-0.6) H 06/14/18 09:20 Eos # (Auto) 0.3 (0.0-0.7) 06/14/18 09:20 Baso # (Auto) 0.03 K/mm3 (0.0-2.0) 06/14/18 09:20 Absolute Neuts (auto) 6.03 (1.4-6.5) 06/14/18 09:20 PT 12.1 SECONDS (9.4-12.5) 06/14/18 09:20 INR 1.07 06/14/18 09:20 APTT 27.2 Seconds (26.9-38.3) 06/14/18 09:20 Sodium 138 mmol/L (132-148) 06/15/18 10:30 Potassium 4.6 mmol/L (3.6-5.0) 06/15/18 10:30 Chloride 103 mmol/L (98-107) 06/15/18 10:30 Carbon Dioxide 25 mmol/L (21-33) 06/15/18 10:30 Anion Gap 15 (10-20) 06/15/18 10:30 BUN 19 mg/dL (7-21) 06/15/18 10:30 Creatinine 0.7 mg/dl (0.8-1.5) L 06/15/18 10:30 Est GFR ( Amer) > 60 06/15/18 10:30 Est GFR (Non-Af Amer) > 60 06/15/18 10:30 POC Glucose (mg/dL) 343 mg/dL (65-110) H 06/16/18 11:52 Random Glucose 174 mg/dL (70-110) H 06/15/18 10:30 Hemoglobin A1c 10.4 % (4.2-6.5) H 06/15/18 07:00 Calcium 10.0 mg/dL (8.4-10.5) 06/15/18 10:30 Phosphorus 3.1 mg/dL (2.5-4.5) 06/14/18 09:20 Magnesium 1.5 mg/dL (1.7-2.2) L 06/15/18 10:30 Total Bilirubin 1.1 mg/dL (0.2-1.3) 06/14/18 09:20 AST 22 U/L (17-59) 06/14/18 09:20 ALT 17 U/L (7-56) 06/14/18 09:20 Alkaline Phosphatase 117 U/L (38-126) 06/14/18 09:20 Lactate Dehydrogenase 512 U/L (333-699) 06/14/18 09:20 Total Creatine Kinase 77 U/L (35-230) 06/14/18 09:20 Troponin I < 0.01 ng/mL D 06/14/18 09:20 Total Protein 7.9 g/dL (5.8-8.3) 06/14/18 09:20 Albumin 4.5 g/dL (3.0-4.8) 06/14/18 09:20 Globulin 3.4 gm/dL 06/14/18 09:20 Albumin/Globulin Ratio 1.3 (1.1-1.8) 06/14/18 09:20 Triglycerides 149 mg/dL (35-160) 06/14/18 17:21 Cholesterol 116 mg/dL (130-200) L 06/14/18 17:21 LDL Cholesterol Direct 65 mg/dL (0-129) 06/14/18 17:21 HDL Cholesterol 25 mg/dL (29-60) L 06/14/18 17:21 Free T4 1.90 ng/dL (0.78-2.19) 06/15/18 10:30 TSH 3rd Generation 1.78 mIU/mL (0.46-4.68) 06/15/18 10:30 - Hospital Course Hospital Course: Pt seen and examined by me. I have reviewed the note of the chief medical director and I agree with it. I have discussed the assessment and plan with the resident. I have reviewed the medications and the last labs.
--- NOTE | 2018-06-16 10:02 | CP.PCM.PCO ---
Assessment & Plan - Assessment and Plan (Free Text) Assessment: NEURO COMMUNICATION NOTE: RIGHT HEMISPHERIC CVA CAUSING LEFT SIDE WEAKNESS SEC TO DIFFUSE ATHEROSCLEROTIC DISEASE AND UNCONTROLLED DM2. ASA81 MG AND LIPITOR 40 MG PO DAILY. PHYSICAL THERAPY AND DIABETIC EDUCATION. CRISTI MALIN
[2018-06-16 13:20] VITALS: BP 112/72; PULSE 72; RESP 19; TEMP 98.3
--- NOTE | 2018-06-17 04:00 | DS ---
HOSPITAL COURSE: The patient was seen and examined by me. I did review the note of the medical claims manager. I was involved in the plan of care. The patient had come into the hospital, was found to have left leg weakness. Initial CAT scan that was done did not show significant abnormality. A repeat CAT scan did show that there was an infarct in the right periventricular area most likely in the middle cerebral artery region. This is a new onset acute CVA. The patient had his Lipitor increased to maximize aggressive medical management. The patient is going to continue his aspirin. He was seen by Neurology. The patient was accepted to [facility] and was discharged. He does have a history of diabetes type 2, hypertension, and coronary disease. The patient feels well. He is very interested in going to rehab. Kirk Navarro MD
== END 2018-06-16 14:08 | DRG 65 ==
LOC: ED 09:16 → ERH 10:36 → 2RSO 13:52
PROVIDERS: ADMIT Internal Medicine Nephrology; ATTEND Internal Medicine Nephrology
DX: I63.9 Cerebral infarction, unspecified (principal); G81.94 Hemiplegia, unspecified affecting left nondominant side; I42.9 Cardiomyopathy, unspecified; R29.810 Facial weakness; I11.0 Hypertensive heart disease with heart failure; J44.9 Chronic obstructive pulmonary disease, unspecified; Z87.891 Personal history of nicotine dependence; E11.65 Type 2 diabetes mellitus with hyperglycemia; W19.XXXA Unspecified fall, initial encounter; I25.10 Atherosclerotic heart disease of native coronary artery without angina pectoris; E78.5 Hyperlipidemia, unspecified; I25.2 Old myocardial infarction; I50.9 Heart failure, unspecified; W18.30XA Fall on same level, unspecified, initial encounter; Z79.4 Long term (current) use of insulin; Z79.82 Long term (current) use of aspirin; Z79.899 Other long term (current) drug therapy; Z95.0 Presence of cardiac pacemaker; Z95.1 Presence of aortocoronary bypass graft